=== PATIENT | male | born 1975 | race Caucasian/White ===

== ENCOUNTER → 2016-09-30 | Outpatient (CLI) | payer OTHER | LOC: CIMAGING 09:26 | PROVIDERS: ATTEND Neurological Surgery | DX: M51.37 Other intervertebral disc degeneration, lumbosacral region (principal); M12.9 Arthropathy, unspecified | CPT/HCPCS: 72100-PO ==

== ENCOUNTER 2016-10-29 11:12 | Inpatient (IN) | payer OTHER ==
[~2016-10-29 11:12] MED LIST: BACITRACIN 50,000 UNITS/10 ML SYR IRR ONE; BUPIVACAINE 0.25% 30 ML SDV ONE; BUPIVACAINE/EPI 0.25% 30 ML SDV ONE; DEXAMETHASONE 10 MG/ML VIAL IVP ONE; THROMBIN (BOVINE) 5,000 UNIT VIAL TP ONE; ceFAZolin 2 GM/DEXTROSE 100 ML IV ONE; fentaNYL 100 MCG/2 ML INJ IT ONE; morphINE PF 5 MG/10 ML INJ IT ONE
[2016-10-29] MEDS ORDERED: DEXAMETHASONE 10 MG/ML VIAL ONE (12:10)
[2016-10-29] MEDS ORDERED: CEFAZOLIN 2 GM/DEXTROSE/100 ML BAG IV ONE (12:11)
[2016-10-29] MEDS ORDERED: LR 1,000 ML IV ONE (12:32)
[2016-10-29] MEDS ORDERED: CITRATE DEXTROSE SOLN 500 ML BAG ONE ×4 (13:49→15:40)
[2016-10-29] MEDS ORDERED: SCOPOLAMINE HYDROBROMIDE 1.5 MG PATCH TD ONE ×2 (15:01→15:30)
[2016-10-29] MEDS ORDERED: MIDAZOLAM 2 MG/2 ML VIAL ONE (15:01)
[2016-10-29] MEDS ORDERED: LIDOCAINE 2% 5 ML SDV ONE (15:07)
[2016-10-29] MEDS ORDERED: PROPOFOL/EMULSION 500 MG/50 ML BOTTLE IV ONE ×2 (15:07→17:38)
[2016-10-29] MEDS ORDERED: REMIFENTANIL HCL 1 MG VIAL ONE ×2 (15:07→17:37)
[2016-10-29] MEDS ORDERED: fentaNYL 100 MCG/2 ML INJ ONE ×4 (15:07→19:44)
[2016-10-29] MEDS ORDERED: PROPOFOL 200 MG/20 ML VIAL ONE (15:08)
[2016-10-29] MEDS ORDERED: RANITIDINE 50 MG/2 ML VIAL ONE (15:09)
[2016-10-29] MEDS ORDERED: ONDANSETRON 4 MG/2 ML VIAL ONE (15:09)
[2016-10-29] MEDS ORDERED: ROCURONIUM 50 MG/5 ML VIAL ONE (15:10)
[2016-10-29] MEDS ORDERED: epHEDrine SULFATE 10 MG/ML SYR ONE ×3 (16:01→16:46)
[2016-10-29] MEDS ORDERED: BACITRACIN 50,000 UNITS/10 ML SYR IRR ONE (17:21)
[2016-10-29] MEDS ORDERED: morphINE PF 5 MG/10 ML INJ ONE (17:30)
[2016-10-29] MEDS ORDERED: ceFAZolin 1 GM VIAL ONE (18:25)
[2016-10-29] MEDS ORDERED: DIAZEPAM 5 MG TAB PO PRN (18:49)
[2016-10-29] MEDS ORDERED: DIAZEPAM 10 MG/2 ML SYR IVP PRN (18:49)
[2016-10-29] MEDS ORDERED: MAG HYDROX/AL HYDROX/SIMETH 30 ML UDCUP PO PRN (18:49)
[2016-10-29] MEDS ORDERED: LACTULOSE 20 GM/30 ML UDCUP PO PRN (18:49)
[2016-10-29] MEDS ORDERED: NALOXONE HCL 0.4 MG/ML INJ IVP PRN (18:49)
[2016-10-29] MEDS ORDERED: MAGNESIUM HYDROXIDE 30 ML UDCUP PO PRN (18:49)
[2016-10-29] MEDS ORDERED: ACETAMINOPHEN 325 MG TAB PO PRN (18:49)
[2016-10-29] MEDS ORDERED: ONDANSETRON 4 MG/2 ML VIAL IVP PRN (18:49)
[2016-10-29] MEDS ORDERED: HYDROmorphONE/DILAUDID 1 MG/ML SYR IVP PRN (18:49)
[2016-10-29] MEDS ORDERED: diphenhydrAMINE 25 MG CAP PO PRN (18:49)
[2016-10-29] MEDS ORDERED: HYDROCODONE/APAP 10/325 TAB PO PRN (18:49)
[2016-10-29] MEDS ORDERED: ONDANSETRON DISINTEGRATING 4 MG TAB PO PRN (18:49)
[2016-10-29] MEDS ORDERED: morphINE PCA 30 MG/30 ML PCA IV PRN (18:49)
[2016-10-29] MEDS ORDERED: BISACODYL 10 MG SUPP PR PRN (18:49)
[2016-10-29] MEDS ORDERED: NS W/ 20 KCl/L 1,000 ML IV SCH (19:00)
--- NOTE | 2016-10-29 19:00 | POSTOPPROG ---
Post Op Note Date of Operation: 10/29/16 Surgeon: Rey Felton Finish Off Operator: Sarina Anesthesiologist: Mallory Anesthesia: GET(General Endotracheal) Pre-op Diagnosis: LUmbar DJD/Stenosis L4-S1 Post-op Diagnosis: same Indication: back and left leg pain Procedure: L4-S1 TLIF Findings: DJD, Stenosis Inf/Abcess present in the surg proc area at time of surgery?: No EBL: 100-500 Total fluids administered: 2400 Complications: durotomy Drains: Mehul Lynne (NO bulb suction to PARI)
--- NOTE | 2016-10-29 19:05 | SOAPPROG ---
SOAP Progress Note Assessment/Plan: Assessment: POST OP CHECK: doing well status post L4-S1 TLIF Plan: Head of bed flat x 24 hrs No suction to PARI drain CPMP in PACU, transfer to floor per protocol 10/29/16 19:00 Subjective: groggy, opens eyes to voice, nods head appropriately Objective: Neuro: AGUIRRE, sensation +LT x 4 BP: 130/66 HR: 76 O2: 100% ICD10 Worksheet Patient Problems: Problems Problem Status Onset Degenerative disc disease Acute - ICD10 Problem Qualifiers (1) Degenerative disc disease Qualifiers: Spinal region: S Mid-cervical spinal level: M
[2016-10-29] MEDS ORDERED: HYDROmorphONE/DILAUDID 1 MG/ML SYR ONE (19:44)
--- NOTE | 2016-10-29 20:10 | GOP ---
[f rep st] OPERATIVE REPORT DATE OF OPERATION: 10/29/2016 SURGEON: Rey Felton MD NEUROSURGEON: Rey Felton MD DEAL[employer]ATIONSH[employer] MANAGER: Axel Branch PA-C. ANESTHESIA: General endotracheal. PREOPERATIVE DIAGNOSIS: Severe multilevel lumbar degenerative joint disease with severe lateral rec ess and neural foraminal encroachment with disk space collapse and structural root compression. Mik led conservative care. POSTOPERATIVE DIAGNOSIS: Severe multilevel lumbar degenerative joint disease with severe lateral re cess and neural foraminal encroachment with disk space collapse and structural root compression. Fa iled conservative care. PROCEDURE PERFORMED: FINDINGS: ESTIMATED BLOOD LOSS: 150 cc. DESCRIPTION OF PROCEDURE: After informed consent was obtained, the patient was taken to the operati ng room and placed in the prone position on the Mehul table. The lumbosacral area was prepped and draped in a sterile fashion. After fluoroscopic localization of correct levels, the subcutaneous a nd intramuscular tissues were infiltrated with local anesthesia. A midline linear incision was then created over the L4 through S1 spinous processes. This was carried down to the fascial layer, whic h was incised using monopolar electrocautery and carried into a subperiosteal plane along the spinou s processes and lamina bilaterally. Intraoperative fluoroscopy was again utilized to verify the cor rect levels. Following this, left-sided far lateral transpedicular decompressions were performed wi th complete unroofing of the facet joints and neural foramen. There was quite a bit of scar tissue at the L4-5 level, and in carefully dissecting this off the dura, there was a very thin area at the very rostral end of the interspace somewhat in the axilla of the nerve root, I saw a very small amou nt of clear fluid and placed a piece of DuraGen and a small piece of Gelfoam over this; it stopped c ompletely, and there was no further clear fluid throughout the remainder of the case. I felt that i t was not in the patient's best interest to try and place a stitch because it was really just a thin dura and minimally leaky, and placing a stitch would most likely caused increased leakage. Followi ng extensive decompression of the L4, L5, and S1 nerve roots out laterally and medially under high-p ower microscopy, the Pyreg neuronavigational system was brought in and, using computer volumetric stereotactic navigation, pedicle screws were placed on the left at the L4, L5, and S1 levels. Each individual screw was tested neurophysiologically with monopolar electrostimulation and interpretatio n potentials by the surgeon. Biplanar fluoroscopy was also utilized to verify good position of the screws. Following this, individual rods were placed, first at L4-5 then at L5-S1, with a slight simon unt of distraction across the interspaces, during which time complete diskectomies were performed wi th preparation of the endplates and placement of 2 structural PEEK interbody spacers with local auto graft and bone morphogenic protein at each level. A longer mer extending from L4 to S1 was then krista risa and secured with a slight amount of compression across the interspaces in order to facilitate jignesh ny union and to minimize the potential for posterior graft migration. Axle devices were then placed at the L4-5 and L5-S1 levels, in lieu of right-sided pedicle screws in order to maximize the bony s urface area for the posterolateral fusion on that side and to minimize the further potential for chelsie ral injury or irritation. The remaining lamina and facet joints were then extensively decorticated, and the residual local autograft along with bone morphogenic protein was placed out laterally for p osterolateral fusion at the L4 through S1 levels. 200 mcg of Duramorph along with 50 mcg of fentany l were then injected intrathecally for postoperative pain control at the L3-4 level. The subcutaneo us and intramuscular tissues were re-infiltrated with local anesthesia. A drain was placed, and the wound was closed in a layered fashion using interrupted Vicryl sutures followed by Steri-Strips on the skin. PROCEDURE: 1. Mini open exposure for left-sided L4-5 and L5-S1 far lateral transpedicular decompression with L 4 through S1 posterior segmental (pedicle screw and axle device) fixation and posterolateral fusion with local autograft and bone morphogenic protein. 2. L4-5 and L5-S1 posterior transforaminal lumbar interbody fusion with 2 structural PEEK interbody spacers, local autograft, and bone morphogenic protein. 3. Use of intraoperative microscopy, fluoroscopy, and computer volumetric stereotactic navigation w ith intraoperative neurophysiologic testing. 4. Injection of intrathecal narcotic analgesics for postoperative pain control. COMPLICATIONS: None. INDICATIONS FOR PROCEDURE: The patient is a 41-year-old male with intractable low back pain and lef t lower extremity radicular pain secondary to severe multilevel degenerative joint disease and disk space collapse with neuroforaminal structural compression and failed conservative care. He presents for surgical decompression and stabilization. DISPOSITION: The patient is currently in the process of being repositioned for extubation. Note th at final x-rays were also taken to verify good position of the screws, mer, interspinous process cla mps, and interbody spacers. /[id number]/MODL
[2016-10-29] MEDS ORDERED: FAMOTIDINE 20 MG/NACL 50 ML IV SCH (21:00)
[2016-10-29] MEDS ORDERED: GABAPENTIN 300 MG CAP PO SCH (21:00)
[2016-10-29] MEDS: SENNOSIDES/DOCUSATE SODIUM TAB PO SCH (21:23)
[2016-10-29] MEDS: FAMOTIDINE 20 MG TAB PO SCH (21:23)
[2016-10-29] MEDS: POLYETHYLENE GLYCOL 3350 17 GM PKT PO SCH (21:23)
[2016-10-29] MEDS: morphINE SR 30 MG TAB PO SCH (21:23)
[2016-10-29] MEDS: BECLOMETHASONE QVAR 40 MDI IH SCH (23:46)
[2016-10-30 04:39] LABS: % IMMATURE GRANULYOCYTES 0.5 % (0.0-1.1); ABSOLUTE IMMATURE GRANULOCYTES 0.06 10^3/uL (0.00-0.10); ADD DIFF? NO; ADD MORPH? NO; ADD SCAN? NO; ATYPICAL LYMPHOCYTE FLAG 0 (0-99); FRAGMENT RBC FLAG 0 (0-99); HEMATOCRIT 41.2 % (40.0-51.0); HEMOGLOBIN 13.5 g/dL (13.7-17.5); LEFT SHIFT FLG 0 (0-99); LIPEMIA HEMOLYSIS FLAG 80 (0-99); MEAN CELL HEMOGLOBIN 30.7 pg (27.9-34.1); MEAN CELL HEMOGLOBIN CONCENTR. 32.8 g/dL (32.4-36.7); MEAN CELL VOLUME 93.6 fL (81.5-99.8); MEAN PLATELET VOLUME 9.4 fL (8.7-11.7); PLATELET CLUMPS FLAG 0 (0-99); PLATELET COUNT 210 10^3/uL (150-400); RED CELL DISTRIBUTION WIDTH 12.4 % (11.5-15.2)
[2016-10-30 05:11] LABS: ANION GAP 7 mEq/L (8-16); CARBON DIOXIDE 24 mEq/l (22-31); CHLORIDE 105 mEq/L (97-110); CREATININE 1.1 mg/dL (0.7-1.3); GLOMERULAR FILTRATION RATE > 60; GLUCOSE 144 mg/dL (70-100); POTASSIUM 4.6 mEq/L (3.5-5.2); SODIUM 136 mEq/L (134-144)
[2016-10-30] MEDS: METHOCARBAMOL 750 MG TAB PO PRN ×2 (06:10→15:51)
[2016-10-30] MEDS: OXYCODONE/APAP 5/325 TAB PO PRN ×3 (06:10→18:59)
--- NOTE | 2016-10-30 07:47 | SOAPPROG ---
SOAP Progress Note Assessment/Plan: Assessment: doing well status post L4-S1 TLIF improving left leg paresthesias tolerating being flat Plan: Head of bed flat x 24 hrs No suction to PARI drain Subjective: awake, alert, pain controlled. feels left leg paresthesias are improving, no AGUILERA Objective: Vital Signs Temp Pulse Resp BP Pulse Ox 37.0 C 49 L 12 97/51 L 99 10/30/16 07:11 10/30/16 07:11 10/30/16 07:11 10/30/16 07:11 10/30/16 07:11 Laboratory Results 10/30/16 04:30 10/30/16 04:30 10/29/16 10/30/16 10/31/16 05:59 05:59 05:59 Intake Total 4037 Output Total 1495 1100 Balance 2542 -1100 Neuro: AGUIRRE, Sens +LT PARI: 15ml Dressing: incision dry, no drainage ICD10 Worksheet Patient Problems: Problems Problem Status Onset Degenerative disc disease Acute - ICD10 Problem Qualifiers (1) Degenerative disc disease Qualifiers: Spinal region: S Mid-cervical spinal level: M
[2016-10-30] MEDS: FAMOTIDINE 20 MG TAB PO SCH ×2 (08:33→19:51)
[2016-10-30] MEDS: SENNOSIDES/DOCUSATE SODIUM TAB PO SCH ×2 (08:33→19:51)
[2016-10-30] MEDS: morphINE SR 30 MG TAB PO SCH ×2 (08:33→19:51)
[2016-10-30] MEDS: POLYETHYLENE GLYCOL 3350 17 GM PKT PO SCH ×3 (08:33→19:52)
[2016-10-30] MEDS: POTASSIUM BICARBONATE PO SCH (08:41)
[2016-10-30] MEDS: CIT AC PO SCH (08:41)
[2016-10-30] MEDS: BECLOMETHASONE QVAR 40 MDI IH SCH (11:45)
[2016-10-30] MEDS: ENOXAPARIN 40 MG/0.4 ML SYR SC SCH (13:09)
[2016-10-30 15:43] VITALS: RESP 16
[2016-10-30] MEDS: GABAPENTIN 300 MG CAP PO SCH (19:51)
[2016-10-31] MEDS: OXYCODONE/APAP 5/325 TAB PO PRN ×3 (00:21→13:52)
[2016-10-31] MEDS: BECLOMETHASONE QVAR 40 MDI IH SCH ×2 (00:23→08:59)
[2016-10-31 08:02] VITALS: BP 108/68; PULSE 88; TEMP 98.9; O2SAT 92
[2016-10-31] MEDS: SENNOSIDES/DOCUSATE SODIUM TAB PO SCH (08:24)
[2016-10-31] MEDS: GABAPENTIN 300 MG CAP PO SCH (08:24)
[2016-10-31] MEDS: FAMOTIDINE 20 MG TAB PO SCH (08:25)
[2016-10-31] MEDS: morphINE SR 30 MG TAB PO SCH (08:25)
[2016-10-31] MEDS: ENOXAPARIN 40 MG/0.4 ML SYR SC SCH (08:27)
[2016-10-31] MEDS: POLYETHYLENE GLYCOL 3350 17 GM PKT PO SCH (08:27)
[2016-10-31] MEDS: METHOCARBAMOL 750 MG TAB PO PRN ×2 (08:29→13:52)
[2016-10-31] MEDS: POTASSIUM BICARBONATE PO SCH (09:25)
[2016-10-31] MEDS: CIT AC PO SCH (09:25)
--- NOTE | 2016-10-31 11:31 | NEUSURGPN ---
Assessment/Plan: 41 yo male sp L4-S1 TLIF Overall doing well, has continued left leg pain and spasms intermittently. Up with PT/OT and walking around hallways well. Plan: Optmize pain control- well controlled on robaxin, oxy and MS contin Gabapentin increased to 300mg BID postop xrays performed and shows intact hardware No suction to PARI drain- patient to go home with drain PT/OT Dispo- Home today once pain controlled, with drain- RN to give teaching on how to empty and record output Discussed and seen by Dr. Hernandez Subjective: Patient with some continuous spasms and pain in left leg. Has been up with PT and walking around halls well. has had BM. Denies weakness. Objective: NAD,VSS BLE 5/5= Sensation intact - decreased somewhat in LLE- numbness same as he had prior to surgery Incision c/d/i PARI with minimal serosang in bulb - Physician Discussed Patient with : Purnima Patient Seen by : Purnima Neurosurgery Physical Exam - Vitals, I&O, Labs I and O 10/30/16 10/31/16 11/01/16 05:59 05:59 05:59 Intake Total 4037 1600 Output Total 1495 2078 35 Balance 2542 -478 -35 Intake: Oral (ml) 800 1600 IV Intake (ml) 2500 IV Infused (ml) 737 NS W/ 20 KCl/L 1,000 ml @ 637 75 mls/hr IV CONT MIRIAM Rx #:[id number] ceFAZolin 1 GM/DEXTROSE 100 50 ml @ 200 mls/hr IV Q8HRS MIRIAM Rx#:[id number] Output: Urine (ml) 1300 2000 Catheter 1100 1100 Urinal 200 900 Estimated Blood Loss (ml) 150 Wound Drainage (ml) 45 78 35 Posterior Back Mehul 45 78 35 Lynne Other: Intake Quantity Yes Yes Sufficient Number of Voids Catheter 1 2 Toilet 1 Urinal 1 1 Bladder Scan Volume (ml) Catheter 859 Post Void Residual Scan Volume (ml) Catheter 0 Urinal 936 Vital Signs Temp Pulse Resp BP Pulse Ox 37.2 C 88 16 108/68 92 10/31/16 07:58 10/31/16 07:58 10/31/16 07:58 10/31/16 07:58 10/31/16 07:58 Laboratory Results 10/30/16 04:30 10/30/16 04:30 ICD10 Worksheet Patient Problems: Problems Problem Status Onset Degenerative disc disease Acute
== END 2016-10-31 14:13 | disposition home or self-care (01) | DRG 460 ==
LOC: F3N 11:12 → EEVIPCON 12:45 → F3N 19:54
PROVIDERS: ADMIT Neurological Surgery; ATTEND Neurological Surgery
PROC: 01NB0ZZ Release Lumbar Nerve, Open Approach (ICD-10-PCS; principal; 2016-10-29 12:45)
PROC: 0SG30AJ Fusion of Lumbosacral Joint with Interbody Fusion Device, Posterior Approach, Anterior Column, Open Approach (ICD-10-PCS; principal; 2016-10-29 12:45)
PROC: 0SG00AJ Fusion of Lumbar Vertebral Joint with Interbody Fusion Device, Posterior Approach, Anterior Column, Open Approach (ICD-10-PCS; principal; 2016-10-29 12:45)
PROC: 3E0U0GB Introduction of Recombinant Bone Morphogenetic Protein into Joints, Open Approach (ICD-10-PCS; principal; 2016-10-29 12:45)
PROC: 0QB00ZZ Excision of Lumbar Vertebra, Open Approach (ICD-10-PCS; principal; 2016-10-29 12:45)
DX: M51.16 Intervertebral disc disorders with radiculopathy, lumbar region (principal); M51.17 Intervertebral disc disorders with radiculopathy, lumbosacral region
CPT/HCPCS: 97116-GP; 97161-GP; 97165-GO; 97535-GO; C1713; J0690; J1170; J1650; J2250; J2274; J2405; J2704; J2780; J3010; J7060

== ENCOUNTER → 2016-11-07 | Outpatient (CLI) | payer OTHER ==
[~2016-11-07] MED LIST changes: -BACITRACIN 50,000 UNITS/10 ML SYR IRR ONE; -BUPIVACAINE 0.25% 30 ML SDV ONE; -BUPIVACAINE/EPI 0.25% 30 ML SDV ONE; -DEXAMETHASONE 10 MG/ML VIAL IVP ONE; +GADOBUTROL 10 ML VIAL IVP ONE; -THROMBIN (BOVINE) 5,000 UNIT VIAL TP ONE; -ceFAZolin 2 GM/DEXTROSE 100 ML IV ONE; -fentaNYL 100 MCG/2 ML INJ IT ONE; -morphINE PF 5 MG/10 ML INJ IT ONE
== END ==
LOC: FIMAGING 14:04
PROVIDERS: ATTEND Physician Assistant Surgical
DX: M54.9 Dorsalgia, unspecified (principal); M54.32 Sciatica, left side; Z98.1 Arthrodesis status; M51.27 Other intervertebral disc displacement, lumbosacral region; R93.7 Abnormal findings on diagnostic imaging of other parts of musculoskeletal system
CPT/HCPCS: A9585

== ENCOUNTER → 2016-11-20 | Outpatient (CLI) | payer OTHER | LOC: FIMAGING 11:42 | PROVIDERS: ATTEND Internal Medicine Infectious Disease | DX: R50.9 Fever, unspecified (principal); Z87.09 Personal history of other diseases of the respiratory system ==

== ENCOUNTER → 2017-02-14 | Outpatient (CLI) | payer OTHER | LOC: CIMAGING 14:30 | PROVIDERS: ATTEND Neurological Surgery | DX: Z09 Encounter for follow-up examination after completed treatment for conditions other than malignant neoplasm (principal); Z98.1 Arthrodesis status | CPT/HCPCS: 72100-PO ==

== ENCOUNTER → 2017-04-22 | Outpatient (CLI) | payer OTHER | LOC: CIMAGING 13:39 | PROVIDERS: ATTEND Neurological Surgery | DX: Z09 Encounter for follow-up examination after completed treatment for conditions other than malignant neoplasm (principal); Z98.1 Arthrodesis status | CPT/HCPCS: 72100-PO ==

== ENCOUNTER → 2017-11-04 | Outpatient (CLI) | payer OTHER | LOC: CIMAGING 13:39 | PROVIDERS: ATTEND Physician Assistant Surgical | DX: Z98.1 Arthrodesis status (principal) | CPT/HCPCS: 72100-PO ==

== ENCOUNTER → 2018-11-04 | Outpatient (CLI) | payer OTHER | LOC: FIMAGING 10:07 | PROVIDERS: ATTEND Physician Assistant Surgical | DX: Z08 Encounter for follow-up examination after completed treatment for malignant neoplasm (principal); Z98.1 Arthrodesis status ==